=== PATIENT | female | born 1950 | race African-American/Black ===

== ENCOUNTER → 2023-02-23 11:26 | Outpatient (BNVA) | payer OTHER, SELFPAY | PROVIDERS: PCP Physician Assistant; Visit Provider Student in an Organized Health Care Education/Training Program | DX: M47.816 Spondylosis without myelopathy or radiculopathy, lumbar region (principal); M79.642 Pain in left hand; M79.641 Pain in right hand; M17.0 Bilateral primary osteoarthritis of knee | CPT/HCPCS: 99202 ==

== ENCOUNTER 2023-02-23 12:35 | Outpatient (REF) | payer OTHER, SELFPAY ==
[2023-02-23 13:41] LABS: MANUAL DIFF FLAG NO
[2023-02-23 13:48] LABS: Basophils Percent Auto 0.6 % (0-2); Eosinophils Absolute Auto 0.1 X10*3/uL (0.0-0.4); Eosinophils Percent Auto 2.1 % (0-4); Hematocrit 40.9 % (37.0-47.0); Hemoglobin 12.4 g/dl (12.0-16.0); Imm Gran Abs Auto 0.01 X10*3/uL (0.00-0.03); Imm Gran Pct Auto 0.2 % (0.0-0.4); Lymphocytes Absolute Auto 2.8 X10*3/uL (1.2-4.9); Lymphocytes Percent Auto 42.5 % (20-40); Mean Corpuscular HGB Conc 30.3 g/dl (31.0-35.0); Mean Corpuscular Hemoglobin 28.5 pg (27.0-33.0); Mean Platelet Volume 11.8 fL (9.4-12.3); Monocytes Absolute Auto 0.8 X10*3/uL (0.1-1.2); Monocytes Percent Auto 11.6 % (2-11); Neutrophils Absolute Auto 2.8 x10*3/uL (2.0-8.3); Platelet Count 184 X10*3/uL (160-400); Red Blood Count 4.35 X10*6/uL (4.20-5.50); Red Cell Distribution Width 14.3 % (11.0-16.0); White Blood Count 6.5 X10*3/uL (4.8-10.8)
[2023-02-23 14:29] LABS: Erythrocyte Sedimentation Rate 18 MM/HR (0-20)
[2023-02-23 14:58] LABS: Alanine Aminotransferase 7 U/L (0-31); Albumin Level 3.7 g/dL (3.5-5.0); Alkaline Phosphatase 80 U/L (39-117); Anion Gap 10 (12-20); Aspartate Amino Transferase 12 U/L (5-31); Bilirubin Total 0.6 mg/dL (0.0-1.0); Blood Urea Nitrogen 14 mg/dL (9-16); C Reactive Protein 0.57 mg/dL (< or = 0.50); Calcium 9.4 mg/dL (8.4-10.2); Carbon Dioxide 32 mmol/L (22-29); Chloride 104 mmol/L (96-108); Estimated Glomerular Filt Rate > 60; Glucose Random 125 mg/dL (60-115); Potassium 4.4 mmol/L (3.3-5.1); Sodium 142 mmol/L (135-145); Total Protein 6.3 g/dL (6.5-8.0)
[2023-02-25 04:28] LABS: HBc Num1 0.05 S/CO (0.00-0.79); Hepatitis A Antibody IgM 0.23 Index (0-0.79); Hepatitis B Core Antibody Nonreactive (Nonreactive); Hepatitis B Surface Antigen Negative (Negative); ~HepC Num1 0.09 S/CO (0.00-0.79); ~Hepatitis A Antibody IgM Nonreactive (Nonreactive); ~Hepatitis B Surface Antibody NONREACTIVE (Nonreactive); ~Hepatitis C Antibody Nonreactive (Nonreactive)
[2023-02-25 16:49] LABS: TS Negative Control Passed; TS Panel A 5; TS Panel B 11; TS Positive Control Passed; TSpotTB Positive (Negative)
== END 2023-02-23 12:36 | disposition home or self-care (01) ==
LOC: HO.10HDL 12:35
PROVIDERS: Visit Provider Student in an Organized Health Care Education/Training Program
DX: M06.9 Rheumatoid arthritis, unspecified (principal); M25.50 Pain in unspecified joint; E66.01 Morbid (severe) obesity due to excess calories; M79.641 Pain in right hand; M79.642 Pain in left hand; M47.816 Spondylosis without myelopathy or radiculopathy, lumbar region; M17.0 Bilateral primary osteoarthritis of knee; Z11.7 Encounter for testing for latent tuberculosis infection; Z79.899 Other long term (current) drug therapy; Z11.59 Encounter for screening for other viral diseases; Z72.89 Other problems related to lifestyle
CPT/HCPCS: 36415; 80053; 85025; 85652; 86140; 86481; 86704; 86706; 86709; 86803; 87340

== ENCOUNTER 2023-03-22 12:42 | Outpatient (REF) | payer OTHER, SELFPAY ==
--- NOTE | ~2023-03-22 | XR_ITS ---
EXAMINATION: XR foot LT min 3V, XR ankle LT min 3V, XR foot RT min 3V, XR ankle RT min 3V CLINICAL INFORMATION: Additional Information: p.s. pain in bilateral hands, wrists, feet and ankles. : COMPARISON: None. TECHNIQUE: 3 views of each foot. 2 additional views of each ankle. FINDINGS: Left foot/ankle: No fracture or dislocation. Alignment maintained throughout the foot at the digits. Joint spaces are maintained. No osseous erosion. There is a prominent plantar heel spur. Degenerative change at the midfoot with osteophytes at the navicular. Ankle mortise is congruent. There is marked soft tissue swelling throughout the ankle and foot. Right foot/ankle: No fracture or dislocation. Alignment maintained throughout the digits. Joint spaces are maintained. Mild degenerative change at the talonavicular joint and at the articulation of the navicular with the cuneiforms. Pes planus. Prominent heel spurs. Ankle mortise is congruent. No osseous erosion. Diffuse soft tissue swelling. XR/XR ankle RT min 3V IMPRESSION: No acute osseous abnormality. Prominent heel spurs bilaterally. Prominent soft tissue swelling throughout both ankles and feet. No osseous erosion. Degenerative changes of the midfoot bilaterally.
--- NOTE | ~2023-03-22 | XR_ITS ---
EXAMINATION: XR foot LT min 3V, XR ankle LT min 3V, XR foot RT min 3V, XR ankle RT min 3V CLINICAL INFORMATION: Additional Information: p.s. pain in bilateral hands, wrists, feet and ankles. : COMPARISON: None. TECHNIQUE: 3 views of each foot. 2 additional views of each ankle. FINDINGS: Left foot/ankle: No fracture or dislocation. Alignment maintained throughout the foot at the digits. Joint spaces are maintained. No osseous erosion. There is a prominent plantar heel spur. Degenerative change at the midfoot with osteophytes at the navicular. Ankle mortise is congruent. There is marked soft tissue swelling throughout the ankle and foot. Right foot/ankle: No fracture or dislocation. Alignment maintained throughout the digits. Joint spaces are maintained. Mild degenerative change at the talonavicular joint and at the articulation of the navicular with the cuneiforms. Pes planus. Prominent heel spurs. Ankle mortise is congruent. No osseous erosion. Diffuse soft tissue swelling. XR/XR ankle LT min 3V IMPRESSION: No acute osseous abnormality. Prominent heel spurs bilaterally. Prominent soft tissue swelling throughout both ankles and feet. No osseous erosion. Degenerative changes of the midfoot bilaterally.
--- NOTE | ~2023-03-22 | XR_ITS ---
EXAMINATION: XR hand wrist LT, XR hand wrist RT CLINICAL INFORMATION: Additional Information: p.s. pain in bilateral hands, wrists, feet and ankles. Rheumatoid arthritis. COMPARISON: None. TECHNIQUE: 4 views of the left wrist/hand. 4 views of the right wrist/hand. FINDINGS: Left wrist/hand: No fracture or dislocation. Appropriate alignment. No subluxation. No osseous erosions. Joint spaces are maintained. The carpal rows are aligned. Diffuse soft tissue swelling. Right wrist/hand: No fracture or dislocation. Appropriate alignment. No subluxation. Small calcification along the capsule of the first interphalangeal joint. Joint spaces maintained. The carpal rows are well aligned. Small osteophytes along the triscaphe joint. Diffuse soft tissue swelling. XR/XR hand wrist LT IMPRESSION: No acute abnormality of either hand or wrist. No osseous erosions. Normal alignment. Soft tissue swelling.
--- NOTE | ~2023-03-22 | XR_ITS ---
EXAMINATION: XR foot LT min 3V, XR ankle LT min 3V, XR foot RT min 3V, XR ankle RT min 3V CLINICAL INFORMATION: Additional Information: p.s. pain in bilateral hands, wrists, feet and ankles. : COMPARISON: None. TECHNIQUE: 3 views of each foot. 2 additional views of each ankle. FINDINGS: Left foot/ankle: No fracture or dislocation. Alignment maintained throughout the foot at the digits. Joint spaces are maintained. No osseous erosion. There is a prominent plantar heel spur. Degenerative change at the midfoot with osteophytes at the navicular. Ankle mortise is congruent. There is marked soft tissue swelling throughout the ankle and foot. Right foot/ankle: No fracture or dislocation. Alignment maintained throughout the digits. Joint spaces are maintained. Mild degenerative change at the talonavicular joint and at the articulation of the navicular with the cuneiforms. Pes planus. Prominent heel spurs. Ankle mortise is congruent. No osseous erosion. Diffuse soft tissue swelling. XR/XR foot LT min 3V IMPRESSION: No acute osseous abnormality. Prominent heel spurs bilaterally. Prominent soft tissue swelling throughout both ankles and feet. No osseous erosion. Degenerative changes of the midfoot bilaterally.
--- NOTE | ~2023-03-22 | XR_ITS ---
EXAMINATION: XR hand wrist LT, XR hand wrist RT CLINICAL INFORMATION: Additional Information: p.s. pain in bilateral hands, wrists, feet and ankles. Rheumatoid arthritis. COMPARISON: None. TECHNIQUE: 4 views of the left wrist/hand. 4 views of the right wrist/hand. FINDINGS: Left wrist/hand: No fracture or dislocation. Appropriate alignment. No subluxation. No osseous erosions. Joint spaces are maintained. The carpal rows are aligned. Diffuse soft tissue swelling. Right wrist/hand: No fracture or dislocation. Appropriate alignment. No subluxation. Small calcification along the capsule of the first interphalangeal joint. Joint spaces maintained. The carpal rows are well aligned. Small osteophytes along the triscaphe joint. Diffuse soft tissue swelling. XR/XR hand wrist RT IMPRESSION: No acute abnormality of either hand or wrist. No osseous erosions. Normal alignment. Soft tissue swelling.
--- NOTE | ~2023-03-22 | XR_ITS ---
EXAMINATION: XR foot LT min 3V, XR ankle LT min 3V, XR foot RT min 3V, XR ankle RT min 3V CLINICAL INFORMATION: Additional Information: p.s. pain in bilateral hands, wrists, feet and ankles. : COMPARISON: None. TECHNIQUE: 3 views of each foot. 2 additional views of each ankle. FINDINGS: Left foot/ankle: No fracture or dislocation. Alignment maintained throughout the foot at the digits. Joint spaces are maintained. No osseous erosion. There is a prominent plantar heel spur. Degenerative change at the midfoot with osteophytes at the navicular. Ankle mortise is congruent. There is marked soft tissue swelling throughout the ankle and foot. Right foot/ankle: No fracture or dislocation. Alignment maintained throughout the digits. Joint spaces are maintained. Mild degenerative change at the talonavicular joint and at the articulation of the navicular with the cuneiforms. Pes planus. Prominent heel spurs. Ankle mortise is congruent. No osseous erosion. Diffuse soft tissue swelling. XR/XR foot RT min 3V IMPRESSION: No acute osseous abnormality. Prominent heel spurs bilaterally. Prominent soft tissue swelling throughout both ankles and feet. No osseous erosion. Degenerative changes of the midfoot bilaterally.
== END 2023-03-22 12:43 | disposition home or self-care (01) ==
LOC: HO.XRAY 12:42
PROVIDERS: Visit Provider Student in an Organized Health Care Education/Training Program
DX: M06.9 Rheumatoid arthritis, unspecified (principal)
CPT/HCPCS: 73110; 73130; 73610; 73630

== ENCOUNTER → 2023-04-19 10:44 | Outpatient (BNVA) | payer OTHER, SELFPAY | PROVIDERS: PCP Physician Assistant; Visit Provider Nurse Practitioner Family | DX: M17.0 Bilateral primary osteoarthritis of knee (principal); M47.816 Spondylosis without myelopathy or radiculopathy, lumbar region; M25.551 Pain in right hip; M25.552 Pain in left hip; M51.36 Other intervertebral disc degeneration, lumbar region; E66.01 Morbid (severe) obesity due to excess calories; Z68.43 Body mass index [BMI] 50.0-59.9, adult | CPT/HCPCS: 99202 ==